=== PATIENT | female | born 1940 | race Asian ===

== ENCOUNTER 2016-08-05 17:46 | Inpatient (IN) | payer OTHER ==
[~2016-08-05] VITALS: Ht 154.9 cm; Wt 53.8 kg
[~2016-08-05 17:46] MED LIST: LISI-622 PO; METF500T4 PO
[2016-08-05] MEDS ORDERED: MECL-111 PO (18:20)
[2016-08-05] MEDS ORDERED: HYDR25TA PO (18:20)
[2016-08-05] MEDS ORDERED: PRAV40 PO (18:20)
[2016-08-05] MEDS ORDERED: DILT300C51 PO (18:20)
[2016-08-05 18:22] LABS: GLUCOSE,POINT OF CARE 251 MG/DL (70-110)
[2016-08-05] MEDS ORDERED: SODIUM CHLORIDE 0.9% 1,000 ML IV ONE (18:45)
[2016-08-05] MEDS ORDERED: ONDANSETRON HCL 4 MG/2 ML VIAL IVP ONE (18:45)
[2016-08-05 19:04] LABS: BASOPHILS % (AUTO) 1.5 % (0.0-2.0); EOSINOPHILS % (AUTO) 0.5 % (1.0-6.0); HEMATOCRIT 42.9 % (36-46); HEMOGLOBIN 13.6 g/dL (12.0-16.0); LYMPHOCYTES # (AUTO) 3.2 K/uL (1.0-4.8); MEAN CORPUSCULAR HEMOGLOBIN 29.7 pg (26.0-34.0); MEAN CORPUSCULAR HGB CONC 31.8 G/dL (31.0-37.0); MEAN CORPUSCULAR VOLUME 93 fL (80-100); MONOCYTES # (AUTO) 0.5 K/uL (0.1-1.0); MONOCYTES % (AUTO) 3.8 % (2.0-9.0); NEUTROPHILS # (AUTO) 9.9 K/uL (1.8-7.7); NEUTROPHILS % (AUTO) 71.2 % (40.0-70.0); PLATELET COUNT (AUTO) 254 K/uL (150-450); RED BLOOD CELL COUNT(AUTO) 4.59 MIL/uL (4.00-5.20)
[2016-08-05 19:16] LABS: ANION GAP 14 mmol/L (8-16); CALCIUM, TOTAL 8.9 mg/dL (8.8-10.5); CARBON DIOXIDE 21 mmol/L (22-29); CHLORIDE 96 mmol/L (98-107); CREATININE 2.72 mg/dL (0.60-1.30); GLOMERULAR FILTR. RATE CALC 17 mL/min (>60); POTASSIUM 4.8 mmol/L (3.5-5.1); SODIUM SERUM 131 mmol/L (136-145); UREA NITROGEN, BLOOD 40 mg/dL (7-18)
[2016-08-05 19:32] LABS: B-TYPE NATRIURETIC PEPTIDE 584 pg/mL (0-100)
[2016-08-05 19:40] LABS: ALANINE AMINOTRANSFERASE 20 U/L (12-78); ALBUMIN 3.4 g/dL (3.4-5.0); ASPARTATE AMINOTRANSFERASE 23 U/L (15-37); BILIRUBIN,TOTAL 1.1 mg/dL (0.1-1.0); CREATINE KINASE, TOTAL 119 U/L (26-192); TOTAL PROTEIN, SERUM 7.6 g/dL (6.4-8.2)
[2016-08-05 19:41] LABS: CREATINE KINASE MB < 0.5 ng/mL (0-5)
[2016-08-05] MEDS ORDERED: DOPamine HCL 400 MG/D5%-WATER 250 ML IV PRN (21:29)
[2016-08-05 22:10] LABS: DIGOXIN < 0.20 ng/mL (0.90-2.00)
[2016-08-05] MEDS ORDERED: ACETAMINOPHEN 325 MG TABLET PO PRN (22:30)
[2016-08-05] MEDS ORDERED: 0.9% SODIUM CHLORIDE 10 ML SYRINGE IVP PRN (22:30)
[2016-08-05] MEDS ORDERED: ONDANSETRON HCL 4 MG/2 ML VIAL IVP PRN (22:30)
[2016-08-06] VITALS: BP 115/46
[2016-08-06 04:00] VITALS: BP 122/52
[2016-08-06] MEDS: MetFORMIN HCL 500 MG TABLET PO SCH ×2 (07:59→18:18)
[2016-08-06] MEDS: HEPARIN SODIUM,PORCINE 5,000 UNITS/ML VIAL SQ SCH ×2 (07:59→16:47)
[2016-08-06 08:00] VITALS: BP 125/22
[2016-08-06] MEDS: MECLIZINE HCL 25 MG TABLET PO SCH (08:00)
[2016-08-06] MEDS: DILTIAZEM HCL CD 300 MG ER CAPSULE PO SCH (08:00)
[2016-08-06] MEDS: HYDROCHLOROTHIAZIDE 25 MG TABLET PO SCH (08:00)
[2016-08-06] MEDS: LISINOPRIL 5 MG TABLET PO SCH (08:01)
[2016-08-06] MEDS: PRAVASTATIN SODIUM 40 MG TABLET PO SCH (08:16)
[2016-08-06 12:00] VITALS: BP 118/57
[2016-08-06 15:30] VITALS: BP 139/55
[2016-08-06 19:37] VITALS: BP 139/55
[2016-08-07] VITALS (10 sets, daily range): BP systolic 125–145; BP diastolic 56–83
[2016-08-07] MEDS: HEPARIN SODIUM,PORCINE 5,000 UNITS/ML VIAL SQ SCH ×4 (08:54→23:53)
[2016-08-07] MEDS: MECLIZINE HCL 25 MG TABLET PO SCH (08:55)
[2016-08-07] MEDS: PRAVASTATIN SODIUM 40 MG TABLET PO SCH (08:58)
[2016-08-07] MEDS: LISINOPRIL 5 MG TABLET PO SCH (08:59)
[2016-08-07] MEDS: HYDROCHLOROTHIAZIDE 25 MG TABLET PO SCH (09:01)
[2016-08-07] MEDS: MetFORMIN HCL 500 MG TABLET PO SCH ×2 (09:10→18:38)
[2016-08-07] MEDS: DILTIAZEM HCL CD 300 MG ER CAPSULE PO SCH (12:25)
[2016-08-07] MEDS ORDERED: DEXTROSE 50%-WATER 25 GM/50 ML SYRINGE IVP PRN (17:15)
[2016-08-07] MEDS: INSULIN ASPART 100 UNITS/ML SQ PRN (21:12)
[2016-08-07 22:51] LABS: GLUCOSE COMMENT 1 Received Meds; GLUCOSE,POINT OF CARE 166 MG/DL (70-110)
[2016-08-08] VITALS (9 sets, daily range): BP systolic 107–147; BP diastolic 47–68
[2016-08-08] MEDS: MetFORMIN HCL 500 MG TABLET PO SCH ×2 (09:12→17:30)
[2016-08-08] MEDS: HEPARIN SODIUM,PORCINE 5,000 UNITS/ML VIAL SQ SCH ×3 (09:12→23:40)
[2016-08-08] MEDS: MECLIZINE HCL 25 MG TABLET PO SCH (09:13)
[2016-08-08] MEDS: DILTIAZEM HCL CD 300 MG ER CAPSULE PO SCH (09:14)
[2016-08-08] MEDS: HYDROCHLOROTHIAZIDE 25 MG TABLET PO SCH (09:14)
[2016-08-08] MEDS: LISINOPRIL 5 MG TABLET PO SCH (09:15)
[2016-08-08] MEDS: PRAVASTATIN SODIUM 40 MG TABLET PO SCH (09:15)
[2016-08-08 10:07] LABS: GLUCOSE,POINT OF CARE 200 MG/DL (70-110)
[2016-08-08] MEDS: INSULIN ASPART 100 UNITS/ML SQ PRN ×2 (11:43→17:21)
[2016-08-08 17:33] LABS: GLUCOSE,POINT OF CARE 122 MG/DL (70-110)
[2016-08-09 04:58] VITALS: BP 117/51
[2016-08-09 07:02] LABS: GLUCOSE,POINT OF CARE 113 MG/DL (70-110)
[2016-08-09 07:10] LABS: BASOPHILS % (AUTO) 0.9 % (0.0-2.0); EOSINOPHILS % (AUTO) 2.9 % (1.0-6.0); HEMATOCRIT 41.9 % (36-46); HEMOGLOBIN 13.3 g/dL (12.0-16.0); LYMPHOCYTES # (AUTO) 4.7 K/uL (1.0-4.8); LYMPHOCYTES % (AUTO) 54.9 % (22.0-44.0); MEAN CORPUSCULAR HGB CONC 31.8 G/dL (31.0-37.0); MEAN CORPUSCULAR VOLUME 94 fL (80-100); MONOCYTES # (AUTO) 0.5 K/uL (0.1-1.0); MONOCYTES % (AUTO) 5.8 % (2.0-9.0); NEUTROPHILS # (AUTO) 3.1 K/uL (1.8-7.7); NEUTROPHILS % (AUTO) 35.5 % (40.0-70.0); PLATELET COUNT (AUTO) 238 K/uL (150-450); RED BLOOD CELL COUNT(AUTO) 4.44 MIL/uL (4.00-5.20); WHITE BLOOD COUNT (AUTO) 8.7 K/uL (4.5-11.0)
[2016-08-09 07:28] LABS: CHOL/HDL RATIO 3.7 (3.9-5.7); CREATININE 1.36 mg/dL (0.60-1.30); MAGNESIUM 1.7 mg/dL (1.80-2.40); POTASSIUM 4.4 mmol/L (3.5-5.1); THYROID STIMULATING HORMONE 3.51 uIU/mL (0.36-3.74)
[2016-08-09 07:32] VITALS: BP 150/76
[2016-08-09 08:00] VITALS: BP_SYST 119; BP_SYST 121; BP_DIAS 52; BP_DIAS 58
[2016-08-09 08:30] VITALS: BP 102/53
[2016-08-09 09:32] LABS: GLUCOSE,POINT OF CARE 110 MG/DL (70-110)
[2016-08-09] MEDS: MetFORMIN HCL 500 MG TABLET PO SCH (10:08)
[2016-08-09] MEDS: DILTIAZEM HCL CD 300 MG ER CAPSULE PO SCH (10:10)
[2016-08-09] MEDS: HEPARIN SODIUM,PORCINE 5,000 UNITS/ML VIAL SQ SCH (10:10)
[2016-08-09] MEDS: MECLIZINE HCL 25 MG TABLET PO SCH (10:10)
[2016-08-09] MEDS: HYDROCHLOROTHIAZIDE 25 MG TABLET PO SCH (10:11)
[2016-08-09] MEDS: PRAVASTATIN SODIUM 40 MG TABLET PO SCH (10:11)
[2016-08-09] MEDS: LISINOPRIL 5 MG TABLET PO SCH (10:12)
[2016-08-09 11:36] VITALS: BP 142/57
[2016-08-09] MEDS: INSULIN ASPART 100 UNITS/ML SQ PRN (11:37)
[2016-08-09 18:17] LABS: GLUCOSE,POINT OF CARE 115 MG/DL (70-110)
[2016-08-09 18:18] LABS: GLUCOSE,POINT OF CARE 107 MG/DL (70-110)
[2016-08-09 18:18] LABS: GLUCOSE,POINT OF CARE 95 MG/DL (70-110)
[2016-08-11 13:48] LABS: GLUCOSE COMMENT 1 Received Meds; GLUCOSE,POINT OF CARE 145 MG/DL (70-110)
== END 2016-08-09 13:50 | disposition home or self-care (01) | DRG 682 ==
LOC: EMS 17:48 → ICU 22:00 → 5N 08-06 14:45 → 5S 08-06 18:57
PROVIDERS: ADMIT Family Medicine; ATTEND Family Medicine
DX: N17.0 Acute kidney failure with tubular necrosis (principal); G93.40 Encephalopathy, unspecified; I13.0 Hypertensive heart and chronic kidney disease with heart failure and stage 1 through stage 4 chronic kidney disease, or unspecified chronic kidney disease; I50.9 Heart failure, unspecified; E11.22 Type 2 diabetes mellitus with diabetic chronic kidney disease; I95.9 Hypotension, unspecified; F03.90 Unspecified dementia, unspecified severity, without behavioral disturbance, psychotic disturbance, mood disturbance, and anxiety; N18.3 Chronic kidney disease, stage 3 (moderate); R00.1 Bradycardia, unspecified; R42 Dizziness and giddiness; Z85.3 Personal history of malignant neoplasm of breast; Z79.899 Other long term (current) drug therapy; Z79.84 Long term (current) use of oral hypoglycemic drugs; Z86.73 Personal history of transient ischemic attack (TIA), and cerebral infarction without residual deficits
CPT/HCPCS: 70450; 82962; 83735; 84443; 87081; 93005; 93306; 96361; 96365; 96375; 97161; 99291; J1265; J1644; J2405; J7030

== ENCOUNTER → 2016-11-23 | Outpatient (CLI) | payer OTHER ==
[~2016-11-23] MED LIST changes: +DILT300C51 PO; +HYDR25TA PO; +MECL-111 PO; +PRAV40TA4 PO
== END | disposition home or self-care (01) ==
LOC: RADPV 12:38
PROVIDERS: ATTEND Internal Medicine Nephrology
DX: N18.3 Chronic kidney disease, stage 3 (moderate) (principal)
CPT/HCPCS: 76770

== ENCOUNTER 2016-12-19 21:01 | Emergency (ER) | payer OTHER ==
[~2016-12-19] VITALS: Ht 152.4 cm; Wt 52.0 kg
[2016-12-19] MEDS ORDERED: AMOXI1255L PO (21:21)
[2016-12-19] MEDS ORDERED: ASPI-1182 PO (21:21)
[2016-12-19] MEDS ORDERED: [UNRECOGNIZED DRUG - CODE] PO (21:21)
[2016-12-19] MEDS ORDERED: IBUP-2071 PO (21:21)
[2016-12-19] MEDS ORDERED: LINA5TAB PO (21:21)
[2016-12-19] MEDS ORDERED: GLIP5 PO (21:21)
[2016-12-19] MEDS ORDERED: DONE5TAB5 PO (21:21)
[2016-12-19 22:03] LABS: BASOPHILS % (AUTO) 0.7 % (0.0-2.0); EOSINOPHILS % (AUTO) 2.2 % (1.0-6.0); HEMATOCRIT 36.6 % (36-46); HEMOGLOBIN 12.2 g/dL (12.0-16.0); LYMPHOCYTES # (AUTO) 3.5 K/uL (1.0-4.8); LYMPHOCYTES % (AUTO) 33.1 % (22.0-44.0); MEAN CORPUSCULAR HGB CONC 33.3 G/dL (31.0-37.0); MEAN CORPUSCULAR VOLUME 96 fL (80-100); MONOCYTES # (AUTO) 0.6 K/uL (0.1-1.0); MONOCYTES % (AUTO) 5.4 % (2.0-9.0); NEUTROPHILS # (AUTO) 6.2 K/uL (1.8-7.7); NEUTROPHILS % (AUTO) 58.6 % (40.0-70.0); PLATELET COUNT (AUTO) 231 K/uL (150-450); RED BLOOD CELL COUNT(AUTO) 3.81 MIL/uL (4.00-5.20); RED CELL DISTRIBUTION WIDTH 12.7 % (11.5-14.5); WHITE BLOOD COUNT (AUTO) 10.5 K/uL (4.5-11.0)
[2016-12-19 22:16] LABS: INR 0.9 (0.9-1.1)
[2016-12-19 22:19] LABS: APPEARANCE,URINE CLEAR (CLEAR); GLUCOSE, URINE (UA) 250 mg/dL (NEGATIVE); KETONES,URINE NEGATIVE (NEGATIVE); LEUKOCYTE ESTERASE ,URINE NEGATIVE (NEGATIVE); OCCULT BLOOD,URINE NEGATIVE (NEGATIVE); PROTEIN,URINE NEGATIVE (NEGATIVE)
[2016-12-19 22:27] LABS: ADD UA MICROSCOPIC YES
[2016-12-19 22:29] LABS: ANION GAP 11 mmol/L (8-16); CALCIUM, TOTAL 10.3 mg/dL (8.8-10.5); CARBON DIOXIDE 26 mmol/L (22-29); CHLORIDE 105 mmol/L (98-107); CREATININE 1.47 mg/dL (0.60-1.30); GLOMERULAR FILTR. RATE CALC 34 mL/min (>60); POTASSIUM 4.4 mmol/L (3.5-5.1); SODIUM SERUM 142 mmol/L (136-145); UREA NITROGEN, BLOOD 23 mg/dL (7-18)
[2016-12-19 22:29] LABS: RBC,URINE 0-2 /HPF (0-2); SQUAMOUS EPITHELIAL CELL,UR Moderate /LPF (None Seen)
[2016-12-19 22:35] LABS: ALANINE AMINOTRANSFERASE 17 U/L (12-78); ALBUMIN 3.4 g/dL (3.4-5.0); ASPARTATE AMINOTRANSFERASE 19 U/L (15-37); BILIRUBIN,TOTAL 0.4 mg/dL (0.1-1.0); CREATINE KINASE, TOTAL 36 U/L (26-192); TOTAL PROTEIN, SERUM 7.6 g/dL (6.4-8.2)
[2016-12-19] MEDS ORDERED: SODIUM CHLORIDE 0.9% 1,000 ML IV ONE (23:00)
[2016-12-19 23:02] LABS: GLUCOSE,POINT OF CARE 74 MG/DL (70-110)
[2016-12-20 00:27] LABS: GLUCOSE COMMENT 2 Doctor Notified; GLUCOSE,POINT OF CARE 58 MG/DL (70-110)
[2016-12-20] MEDS ORDERED: DEXTROSE 50%-WATER 25 GM/50 ML SYRINGE IVP ONE (00:30)
[2016-12-20 02:02] LABS: GLUCOSE,POINT OF CARE 99 MG/DL (70-110)
[2016-12-20 02:28] VITALS: BP 128/73
[2016-12-20 02:32] LABS: GLUCOSE,POINT OF CARE 92 MG/DL (70-110)
== END 2016-12-20 03:20 | disposition home or self-care (01) ==
LOC: EMS 21:03
DX: E11.649 Type 2 diabetes mellitus with hypoglycemia without coma (principal); I12.9 Hypertensive chronic kidney disease with stage 1 through stage 4 chronic kidney disease, or unspecified chronic kidney disease; E11.22 Type 2 diabetes mellitus with diabetic chronic kidney disease; N18.9 Chronic kidney disease, unspecified; Z79.82 Long term (current) use of aspirin
CPT/HCPCS: 36415; 71010; 80053; 80307; 81001; 82550; 82962; 84484; 85025; 85610; 85730; 87086; 93005; 96361; 96374; 99285; J7030